=== PATIENT | female | born 1990 | race Caucasian/White ===

== ENCOUNTER 2024-01-10 19:06 | Emergency (ER) | payer SELFPAY ==
[~2024-01-10] VITALS: Ht 154.9 cm; Wt 119.0 kg
[2024-01-10 19:15] VITALS: BP 124/76; TEMP 98; O2SAT 98
[2024-01-10 19:16] VITALS: PULSE 98; RESP 18
== END 2024-01-10 21:54 | disposition left against medical advice (07) ==
LOC: ER 19:06
DX: M54.50 Low back pain, unspecified (principal); Z53.21 Procedure and treatment not carried out due to patient leaving prior to being seen by health care provider
CPT/HCPCS: 99281